=== PATIENT | male | born 1955 | race Caucasian/White ===

== ENCOUNTER 2024-10-12 08:21 | Day surgery (SDC) | payer MEDICARE, OTHER, SELFPAY ==
[2024-10-12] VITALS (12 sets, daily range): BP systolic 128–147; BP diastolic 76–97; BMI 42.0
--- NOTE | 2024-10-12 12:31 | CONSULT.STRU ---
Consultation
-
Date/Time Consultation Requested: 10/12/2024
Date/Time Consultation Performed: 10/12/2024
Requesting Provider: Dr. Ivan Agrawal
Performing Provider: HUNTER Martino
Reason for Consultation: Aortic Stenosis/ TAVR evaluation
Patient History
Physicians
Family Physician: Robert Man
Outpatient Loss Control Technician: Tulio Melo
Primary Loss Control Technician: Tulio Gage
History of Present Illness
Mr. Wood is a 68yo male that is here today for cardiac cath as part of his evaluation for his severe aortic stenosis. He has a a known history of COPD/Emphysema and follows with pulmonology but over the last 3 months he has noticed increased SINHA,
chest pain and leg weakness. He was seen by his shoe stock associate and it was not felt to be related to his chronic lung disease. He had an echocardiogram on 09/27/2024 that was notable for aortic valve PG/M.9/47.3, velocity 4.66 m/s, PALMIRA: 1.04cm2,
trace AI, mild MR, EF 55-60%. His had progressed to severe compared to his prior TTE from 04/22/2023. His cardiac catheterization today showed very mild nonobstructive coronary artery disease. His medical history is significant for h/o tobacco
abuse (1 PPD for 43years) and since 2022 he still may smoke 1-3 cigarettes a day when he is feeling stressed. He also vapes marijuana daily and has about 9 alcoholic drinks a week. He denies PND, orthopnea, peripheral edema or palpitations. He
states the chest pain he feels occurs when he is feeling stressed.
Reviewed the pathophysiology of aortic stenosis with the patient and his daughter. Explained the treatment options of SAVR and TAVR. Explained the TAVR evaluation process including follow up BMP, CT TAVR scan, CT surgery consult and Heart Team
discussion. Provided with script for BMP next week, script and appointment for CT TAVR, Consult appointment with Dr. Marc and a copy of the TAVR education booklet with contact information. Allowed for and answered questions.
Past Medical History
Past Medical History: Angina, Cancer (skin), COPD (emphysema), SINHA, GERD, HTN, Hypercholesterolemia, Hypothyroidism, Psychiatric (anxiety/depression), SOB, Valvular Disease and Other (IBS)
Past Surgical History
Past Surgical History: Orthopedic (Right THR) and Other (corneal transplants, skin cancer removed)
Dental History
Needs dental work, contact info for [facility] given to patient
Family History
Mother: at Age (70s) and Cause of (dementia, pneumonia)
Father: at Age (67) and Cause of (cardiac)
Social History
Alcohol: Daily (beer/wine)
Drug: Marijuana (vapes daily)
Tobacco: Smoker (1-3 cigaretttes/ day, prior to April 2023 he smike 1 PPD unfiltered cig. for 45 years)
Personal:
Living: Alone
Employment: Retired (senior java web application developer)
Allergies
Allergy/AdvReac Type Severity Reaction Status Date / Time
No Known Allergies Allergy Unverified 10/12/24 08:30
Home Medications
�Medication �Instructions �Recorded �Confirmed �Type
albuterol sulfate 90 mcg/actuation 2 puff inhalation 6XD PRN wheezing 10/12/24 10/12/24 History
aerosol inhaler
aspirin 81 mg tablet 81 mg PO DAILY 10/12/24 10/12/24 History
atorvastatin 40 mg tablet 40 mg PO DAILY 10/12/24 10/12/24 History
fluticasone fur. 100 mcg-umeclid 1 inh inhalation DAILY 10/12/24 10/12/24 History
62.5 mcg-vilant 25 mcg
inhalat.powder (Trelegy Ellipta)
lisinopril 10 1 tab PO DAILY 10/12/24 10/12/24 History
mg-hydrochlorothiazide 12.5 mg
tablet
magnesium glycinate 400 mg PO DAILY 10/12/24 10/12/24 History
STS%
STS %: 1.72%
Review of Systems
-
History Source: Patient and Family
General: Reports Weight Gain (Since [facility]) and Fatigue
HEENT: Denies Visual Changes or Dysphagia
Respiratory: Reports SOB, SINHA and Other (COPD/Emphysema)
Cardiac: Reports Chest Pain (with stress and exertion) and Palpitations (occasional)
Abdomen/GI: Reports Reflux; Denies Nausea, Vomiting or Diarrhea
: Reports No Symptoms
Musculoskeletal: Reports No Symptoms
Skin: Reports No Symptoms
Neurological: Reports Weakness (bilateral legs with exertion); Denies CVA, TIA, Headaches or Syncope
Vascular: Reports No Symptoms; Denies Claudication
Physical Exam
Vital Signs
Temp 97.7 F 10/12/24 08:38
Temp route: Oral 10/12/24 08:38
Pulse 53 10/12/24 12:00
Blood pressure 131/80 10/12/24 11:55
Blood pressure extremity used: Left upper arm 10/12/24 11:56
Position: Sitting 10/12/24 11:56
MAP (cuff-Dwaine Monitor) 97 10/12/24 11:55
SaO2 95 10/12/24 12:00
Oxygen Mode of Delivery Room air 10/12/24 11:56
Can the patient verbally communicate their pain? Yes 10/12/24 11:56
Actual Weight 128.82 kg 10/12/24 08:26
Body Mass Index (BMI) 42.0 10/12/24 08:26
Labs
10/12/24 06:00
10/03/2024 ([facility]):
BUN/Creat:18/1.06
GFR: 75
H/H: 14.7/45.3
WBC: 10.3
Platelets: [id number]
Diagnostic Studies
09/27/2024 Echocardiogram:
SUMMARY
1. Normal left ventricular systolic function without distinct regional wall motion abnormalities.
2. Left ventricular ejection fraction, by visual estimation, is 55 to 60%.
3. Concentric remodeling of the left ventricle.
4. Grade 2 LV diastolic dysfunction, pseudonormal pattern.
5. Normal right ventricular size and systolic function.
6. Moderately dilated left atrium by volume index 42.7 mL/m2.
7. Normal right atrium by area 18.7 cm2.
8. Right atrial pressure of (3 mmHg), the estimated right ventricular systolic pressure is mildly elevated at (49.8 mmHg).
9. Aortic valve is thickened and calcified. Severe aortic valve stenosis. Trace aortic regurgitation.
10. AoV velocity of 4.66 m/s; Peak aortic valve gradient = 86.9 mmHg; Mean gradient = 47.3 mmHg; AoV Area by continuity equation = 1.04 cm2; AoV Dimensionless Index = 0.23.
11. Mild mitral valve regurgitation is seen.
12. There is a fat pad vs. trivial pericardial effusion.
13. Study done in Normal sinus rhythm.
14. Compared to a prior TTE study from 04/22/2023 Aortic valve gradients have increased and are now indicate severe aortic stenosis.

PHYSICIAN INTERPRETATION
Left Ventricle:
Definity Intravenous contrast was given for enhancement of the left ventricular endocardial borders. The left ventricular internal cavity size was normal. There was Grade 2 LV diastolic dysfunction, pseudonormal pattern. Normal left ventricular
systolic function without distinct regional wall motion abnormalities. Left ventricular ejection fraction, by visual estimation, is 55 to 60%. Concentric remodeling of the left ventricle.
Right Ventricle:
Normal right ventricular size, wall thickness, and systolic function. The tricuspid regurgitant velocity predicts an estimated right ventricular systolic pressure of 49.8 mmHg.
Left Atrium:
The left atrium is moderately dilated by volume index 42.7 mL/m2.
Right Atrium:
Right atrium is normal by area 18.7 cm2.
Inferior vena cava normal in size (<2.1 cm) + greater than 50% variably consistent with normal right atrial pressures (3 mmHg).
Aortic Valve:
The aortic valve is thickened and calcified. Doppler findings and restricted movement of the aortic valve cusps are consistent with severe aortic stenosis. The peak aortic valve gradient is 86.9 mmHg. The mean aortic valve gradient is 47.3 mmHg.
There is trace aortic regurgitation seen.
Mitral Valve:
The calculated mitral valve area is 4.22 cm�, using a pressure half-time of 52 msec. Mild mitral valve regurgitation is seen.
Tricuspid Valve:
There is mild tricuspid valve regurgitation. The tricuspid regurgitant velocity is (3.42 m/s), and with an assumed right atrial pressure of (3 mmHg), the right ventricular systolic pressure is mildly elevated (49.8 mmHg).
Pulmonary Valve:
The pulmonary valve is normal in structure and function, with good leaflet excursion, and without any evidence of pulmonary stenosis or significant regurgitation.
Aorta:
The aortic root appears normal in dimension, with no evidence of dilatation or obstruction.
Pericardium:
A trivial pericardial effusion vs fat pad noted.
Sinus Rhythm: Normal sinus rhythm.
Comparison To Previous Study:
Compared to a prior transthoracic study from 04/22/2023ortic valve gradients have increased and are now indicate severe aortic stenosis.
10/12/2024 Cardiac Cath:
HEMODYNAMIC FINDINGS (mmHg):
LV(s/d,EDP): Valve not crossed. Given high echo gradients and the difficulty with access I did not think it was vasquez to be more aggressive with attempts to cross the valve.
Ao(s/d,m): 105/68, 85
ANGIOGRAPHIC FINDINGS:
Single-plane Left Ventriculography in MORRELL Projection: Valve not crossed. Not done.
Coronary Angiography:
Dominance: Left
Left Main: Large caliber, widely patent.
Left Anterior Descending: The left anterior descending artery is a large-caliber vessel that gives rise to a large caliber first high diagonal branch. The diagonal branch is widely patent with no focal disease in two major distal branches.. The
LAD itself has mild proximal and heavy mid calcification without significant stenotic disease. There is at worst a smooth mid 30% stenosis. All distal vessels have normal flow.
Ramus intermedius: Small caliber, widely patent.
Left Circumflex: The circumflex is a medium caliber system that gives rise to 1 major branching obtuse marginal branch that appears angiographically normal with normal flow.
Right Coronary: The right coronary artery is a huge caliber dominant vessel that gives rise to a very large caliber posterior descending artery that is widely patent. No focal disease.
Fluoroscopy Time (min): 17
Radiation Dose (mGy): 958
DAP (Gy.cm2): 71
Closure device: None. A TR band was applied for hemostasis at the right wrist.
Complications: None.
ASSESSMENT:
1: Very mild nonobstructive coronary artery disease.
2: Tortuous great vessels with very challenging access from the right radial approach. In the future consider either left radial or femoral approach.
CONCLUSIONS and RECOMMENDATIONS:
1: Proceed with TAVR evaluation.
2: Continue medical therapy as ordered.
3: Smoking cessation remains a critical intervention to reduce his morbidity and mortality from vascular events.
Exam
General: Well Developed, Well Nourished and Comfortable
HEENT: Normocephalic, Moist Mucous Membranes, PERRLA and EOMI
Neck: Trachea Midline
Respiratory: Clear and Other (diminished bilateral bases)
Cardiac: S1/S2, Regular Rhythm and Murmur (Grade II/ MADELINE)
GI: Soft, Non Tender, Non Distended and Normal Bowel Sounds
Rectal: Deferred by Provider
Skin: Warm and Dry
Neuro: AO x 3 and Nonfocal/Grossly Intact
Extremities: Lower Level Edema (trace bilateral LE) and Pulses (+1 right DP, +2 left DP)
Psych: Calm
Assessment / Plan
-
Procedure Type:�Isolated AVR
Perioperative Outcome Estimate %
Operative Mortality 1.72%
Morbidity & Mortality 7.66%
Stroke 0.675%
Renal Failure 1.41%
Reoperation 2.67%
Prolonged Ventilation 4.68%
Deep Sternal Wound Infection 0.176%
Long Hospital Stay (>14 days) 5.44%
Short Hospital Stay (<6 days)* 47.8%
Severe Aortic stenosis:
����������� Continue evaluation for aortic stenosis as outpatient
����������� BMP next week at [facility]
����������� CT TAVR scan 10/24/2024 at
����������� CT surgery consult with Dr. Marc� 11/07/2024
����������� Dental Clearance- Contact information for Dr. Duran given to patient
����������� Heart team discussion at [facility]
Data Reviewed
-
EKG: Report Reviewed by me
Senior Java Web Application Developer: Report Reviewed by me, Discussed with Patient and Discussed with Family
Echo: Report Reviewed by me, Discussed with Patient and Discussed with Family
Labs: Labs Reviewed by me
Old Records: Reviewed (Cardiology consult note)
Total Time Spent with Patient (in minutes): 30
--- NOTE | 2024-10-12 13:34 | ITS.CL.CATH ---
Wet End Operator - Catheterization
Cardiac Catheterization
Procedure Report:
LEFT HEART CATHETERIZATION
Date of Procedure: October 12, 2024
Procedures performed:
1: Coronary angiography
Primary Care Physician: Dr. Robert Shah
Primary Pigs Feet Finisher: Dr. Tulio Melo
INDICATION: The patient is a 68-year-old man with a past medical history significant for COPD with ongoing smoking, hypertension, hyperlipidemia, EtOH use and progressive aortic stenosis who is referred for cardiac catheterization in preparation for
aortic valve intervention. Echo performed on September 27 showed preserved LV systolic function with an ejection fraction estimated at 55 to 60% with severe calcific aortic stenosis with a mean gradient of 47 mmHg. The valve area by continuity was 1.0
cm� and aortic valve dimensionless index was 0.23. Mild mitral regurgitation was noted.
ACCESS: The patient was prepped and draped in usual sterile fashion. A 6 [place] Islander sheath was placed in the right radial artery using the Seldinger over the wire technique. This was very challenging due to great vessel tortuosity. Ultimately a 90 cm
6 [place]er sheath was advanced with the tip positioned in the descending aorta to successfully engage the right coronary artery with a 5 [place] JR4 diagnostic catheter. The left coronary was engaged using a 6 [place] JL 4 diagnostic catheter.
HEMODYNAMIC FINDINGS (mmHg):
LV(s/d,EDP): Valve not crossed. Given high echo gradients and the difficulty with access I did not think it was vasquez to be more aggressive with attempts to cross the valve.
Ao(s/d,m): 105/68, 85
ANGIOGRAPHIC FINDINGS:
Single-plane Left Ventriculography in MORRELL Projection: Valve not crossed. Not done.
Coronary Angiography:
Dominance: Left
Left Main: Large caliber, widely patent.
Left Anterior Descending: The left anterior descending artery is a large-caliber vessel that gives rise to a large caliber first high diagonal branch. The diagonal branch is widely patent with no focal disease in two major distal branches.. The
LAD itself has mild proximal and heavy mid calcification without significant stenotic disease. There is at worst a smooth mid 30% stenosis. All distal vessels have normal flow.
Ramus intermedius: Small caliber, widely patent.
Left Circumflex: The circumflex is a medium caliber system that gives rise to 1 major branching obtuse marginal branch that appears angiographically normal with normal flow.
Right Coronary: The right coronary artery is a huge caliber dominant vessel that gives rise to a very large caliber posterior descending artery that is widely patent. No focal disease.
Fluoroscopy Time (min): 17
Radiation Dose (mGy): 958
DAP (Gy.cm2): 71
Closure device: None. A TR band was applied for hemostasis at the right wrist.
Complications: None.
ASSESSMENT:
1: Very mild nonobstructive coronary artery disease.
2: Tortuous great vessels with very challenging access from the right radial approach. In the future consider either left radial or femoral approach.
CONCLUSIONS and RECOMMENDATIONS:
1: Proceed with TAVR evaluation.
2: Continue medical therapy as ordered.
3: Smoking cessation remains a critical intervention to reduce his morbidity and mortality from vascular events.
Ramírez Agrawal M.D.
Copy to: Dr. Robert Shah
[2024-10-17 08:49] LABS: ACT-LR - POC 139 Seconds (116-155)
[2024-10-17 08:49] LABS: ACT-LR - POC 192 Seconds (116-155)
== END 2024-10-12 13:30 | disposition home or self-care (01) ==
LOC: CATH 08:21
PROVIDERS: ATTENDING PHYSICIAN Internal Medicine Interventional Cardiology; FAMILY PHYSICIAN Family Medicine; OTHER PHYSICIAN Internal Medicine Cardiovascular Disease
DX: I25.10 Atherosclerotic heart disease of native coronary artery without angina pectoris (principal); I08.3 Combined rheumatic disorders of mitral, aortic and tricuspid valves; E78.00 Pure hypercholesterolemia, unspecified; I10 Essential (primary) hypertension; F17.210 Nicotine dependence, cigarettes, uncomplicated; J43.9 Emphysema, unspecified; R07.9 Chest pain, unspecified; F41.9 Anxiety disorder, unspecified; F32.A Depression, unspecified; I38 Endocarditis, valve unspecified; Z85.828 Personal history of other malignant neoplasm of skin; Z94.7 Corneal transplant status; Z79.82 Long term (current) use of aspirin; Z79.899 Other long term (current) drug therapy
CPT/HCPCS: 85347; 93458; C1769; C1894; Q9967

== ENCOUNTER → 2024-10-24 09:21 | Outpatient (REF) | payer MEDICARE, OTHER, SELFPAY | LOC: RAD 09:21 | PROVIDERS: ATTENDING PHYSICIAN Nurse Practitioner Adult Health | DX: I35.0 Nonrheumatic aortic (valve) stenosis (principal) | CPT/HCPCS: 74174; 75572; Q9967 ==

== ENCOUNTER 2024-12-01 09:24 | Inpatient (IN) | payer MEDICARE, OTHER, SELFPAY ==
[2024-11-24 08:53] LABS: % Basophils 0.4 % (0-2); % Eosinophils 2.3 % (0-6); % Immature Granulocytes 0.3 % (0-0.5); % Lymphocytes 13.8 % (20.5-51.1); % Monocytes 7.7 % (1.7-9.3); % Neutrophils 75.5 % (42.2-75.2); Absolute Basophils 0.1 10^3/uL (0-0.2); Absolute Eosinophils 0.3 10^3/uL (0-0.7); Absolute Lymphocytes 1.7 10^3/uL (1.2-3.4); Absolute Neutrophils 9.4 10^3/uL (1.4-6.5); Hematocrit 42.9 % (39.0-52.0); Hemoglobin 14.4 g/dL (13.0-18.0); Mean Corp Hgb Conc. 33.6 g/dL (33.0-37.0); Mean Corpuscular Hgb 31.9 pg (27.0-31.0); Mean Corpuscular Volume 95.1 fL (80.0-94.0); Mean Platelet Volume 10.7 fL (7.4-10.4); Nucleated Red Blood Cells % 0 % (-); Platelet Count 251 10^3/uL (130-400); Red Blood Cell Count 4.51 10^6/uL (4.70-6.10); Red Cell Dist. Width 13.8 % (11.5-14.5); White Blood Cell Count 12.4 10^3/uL (4.8-10.8)
[2024-11-24 08:57] LABS: Urine Albumin Negative (Neg - Trace); Urine Bilirubin Negative (Negative); Urine Character Clear (Clear); Urine Color Yellow; Urine Glucose Negative (Negative); Urine Ketone Negative (Negative); Urine Leukocyte 1+ (Negative); Urine Nitrite Negative (Negative); Urine Occult Blood Negative (Negative); Urine Specific Gravity 1.005 (<1.030); Urine Urobilinogen Negative (Neg - 1+)
[2024-11-24 09:03] LABS: APTT 26.5 Sec (23.4-35.0); INR 0.88; PT 12.5 Sec (11.4-14.6)
[2024-11-24 09:06] LABS: Urine Red Blood Cell 0-2 /HPF (0-2); Urine Squamous Cell 0-2 /LPF (Few); Urine White Cell 0-2 /HPF (0-5)
[2024-11-24 09:09] LABS: ALT (SGPT) 24 U/L (0-50); AST (SGOT) 29 U/L (17-59); Alkaline Phosphatase 87 U/L (38-126); Blood Urea Nitrogen 19 mg/dl (9-20); Carbon Dioxide 27 mmol/L (22-30); Chloride 103 mmol/L (98-107); Direct Bilirubin 0.1 mg/dl (0.0-0.4); Glucose 119 mg/dl (70-99); Potassium 4.4 mmol/L (3.5-5.1); Sodium 138 mmol/L (135-145); Total Bilirubin 1.3 mg/dl (0.2-1.3); Total Protein 7.1 g/dl (6.3-8.2); eGFR > 60.00
[2024-11-24 09:17] LABS: NT-proBNP 4510 pg/ml
--- NOTE | 2024-11-24 10:00 | W.PN.UPDATE ---
Update Note
Progress Note Update
Patient assessed in preadmission testing and confirmed medication list. He will take 81 mg aspirin and his inhalers before his 0930 arrival time to the [facility]. Patient understands the risks of the procedure as discussed with Dr. Marc in
consult. Informed patient he will receive a phone call from the heart team Thursday 11/30 to confirm time and location of arrival.
[2024-11-24 10:15] LABS: Glycohemoglobin (HgbA1c) 5.7 % (4.0-5.6)
--- NOTE | 2024-11-24 10:20 | CM ---
Chart reviewed. Met with the patient in PAT. Patient is independent of ADLS, lives alone in a 1 story mobile home, 2 XAVIER, 0 DME. Patient's daughter lives 15 min away. Reviewed preoperative and postoperative instructions and restrictions, along
with showering guidelines. Patient is agreeable to a home visit by CT Transitional RN. Plan is for the patient to return home with CT Transitional RN.
[2024-11-24 13:45] VITALS: BMI 42.5
[2024-12-01] VITALS (23 sets, daily range): BP systolic 105–159; BP diastolic 76–97
[2024-12-01 14:05] LABS: ACT-LR - POC 289 Seconds (116-155)
[2024-12-01 14:18] LABS: ACT-LR - POC 310 Seconds (116-155)
[2024-12-01 14:53] LABS: ACT-LR - POC 314 Seconds (116-155)
--- NOTE | 2024-12-01 15:17 | W.CVOR.SURPR ---
CVOR Surgeon Immed Pre Op
-
I have examined this patient prior to performance of the scheduled procedure.
The patient's condition is unchanged from the time of the dictated/written History and
Physical and the patient is able to undergo the scheduled procedure.
--- NOTE | 2024-12-01 15:18 | W.IMMPOSTOP ---
Surgical Immed Post Op Note
-
[id number]
STRUCTURAL HEART PROCEDURE NOTE:
Preoperative Dx:
Severe aortic stenosis (P/M: 86.9/47.3, PALMIRA 1.04, Frame Tender 4.5m/s)
Morbid Obesity (BMI 42.5)
COPD
Dizziness & difficulties with balance
Numbness/tingling of extremities
Depression/anxiety
EtOH abuse (daily use)
Marijuana abuse
Tobacco abuse (current smoker; 1PPD x 43 years)
HTN/HLD
Urinary frequency
Hypothyroidism
IBS
Skin CA (removed)
Corneal implants
Postoperative Dx:
Same
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
Procedures:
1) L CFV access w/ U/S and fluoroscopic guidance, micropuncture technique, long 6Fr sheath placement
2) L FIELD RADIO TECHNICIAN access w/ tactile (limited), U/S, and fluoroscopic guidance, micropuncture technique, long 6Fr sheath placement
3) Placement of temporary RV pacing wire w/ threshold testing
4) Placement of pigtail catheter in NCC via L FIELD RADIO TECHNICIAN access w/ limited aortography & confirmation of cusp-overlap views
5) R FIELD RADIO TECHNICIAN access w/ tactile (limited), U/S, and fluoroscopic guidance, micropuncture technique, limited angiography, 8Fr dilator placement
6) Perclose placement x 2 into R FIELD RADIO TECHNICIAN, 8Fr sheath placement
7) Lunderquist wire placement through 8Fr sheath w/ subsequent serial dilation of R ileofemoral system & placement of 18Fr COOK sheath (systemic heparin)
8) Wire purchase across stenotic AV (AL-1, soft-tip straight, attempted table-J, return to soft-tip straight, AL-1 into LVOT, J-wire, pigtail catheter, LVEDP assessment (31mmHg))
9) Fluoroscopic inspection of TAVR valve - lunderquist wire to LV
10) Pre-TAVR BAV w/ 25mm TRUE balloon x 2
11) Removal of 18Fr COOK sheath w/ placement of TAVR valve & in-line sheath
12) R TF TAVR w/ placement of 34mm EVOLUT FX+ (1 complete recapture)
13) Post-TAVR DIA assessment (trace PVL, mean gradient 10mmHg)
14) Fluoroscopic inspection of TAVR valve
15) Removal of [id number] w/ R FIELD RADIO TECHNICIAN mgmt w/ perclose sutures x 2; 8Fr angioseal; manual pressure
16) Completion R ileofemoral angiography
17) Removal of temporary pacing wire
18) Limited angiography of L FIELD RADIO TECHNICIAN
19) Removal of L FIELD RADIO TECHNICIAN 6Fr sheath w/ mgmt w/ 6Fr angioseal; manual pressure (protamine)
20) Removal of L CFV 6Fr sheath; manual pressure
Cruise Counselor:
Dr. Nivia Cho
Cardiac Surgeon:
Dr. Yash Alexander
Anesthesia:
Dr. Theodore Guillory and Deisi Kowalski, C.R.N.A.
General endotracheal
Implants:
Medronic Evolut FX+; 34mm; [id number]
Perclose x 2 and 8Fr angioseal x 1 to R FIELD RADIO TECHNICIAN
6Fr angioseal x 1 to L FIELD RADIO TECHNICIAN
Cath Data:
Start: 1334hrs, Deploy: 1446hrs, End: 1511hrs
FT: 26.2min, mGy: 3003.47, DAP: 201.42, Contrast: 176mL
Post-DIA: mean gradient 10mmHg, trace PVL
Complications:
None
Condition:
Stable/guarded to recovery
[2024-12-01] MEDS: ANCEF 10 IV (15:50)
--- NOTE | 2024-12-01 16:26 | CM ---
Chart reviewed. Patient is independent of ADLS, lives alone in a mobile home, 2 XAVIER, 0 DME. Plan is for the patient to return home with CT Transitional RN. CM to follow
--- NOTE | 2024-12-01 16:39 | ITS.CL.TAVR ---
Drafter Apprentice - TAVR Report
TAVR PRocedure
Procedure Report:
TRANSCATHETER AORTIC VALVE REPLACEMENT
Date of Procedure: December 01, 2024
Referring: Sarah Agrawal and Tulio Gage
Operators: Drs. Nivia Cho MD and Yash Alexander MD
PROCEDURE PERFORMED:
1. Successful placement of 34 mm Medtronic Evolut FX+ valve via right femoral artery.
ACCESS:
1. Right common femoral artery, 8 [place] Ze[place]ander sheath, under ultrasound guidance using a micropuncture kit.
2. Left common femoral vein, 6 [place] sheath, under ultrasound guidance using a micropuncture kit.
3. Left common femoral artery, 6 [place] sheath, under ultrasound guidance using a micropuncture kit.
Ultrasound was utilized for vascular access. The right and left femoral artery and vein were visualized under ultrasound, and the vessels was patent and arteries were pulsatile. An image was stored permanently in the patient's medical record.
Under direct ultrasound guidance, a 6 [place] Zealander sheaths was inserted into the left common femoral artery and vein, and an 8 [place] sheath in the right common femoral artery, respectively, using a micropuncture kit through a modified Seldinger technique.
PREPROCEDURE NYHA CLASS: II
DESCRIPTION OF PROCEDURE: The patient was referred for assessment of severe symptomatic aortic stenosis and following a comprehensive evaluation it was felt that transcatheter aortic valve replacement (TAVR) would be the most appropriate treatment.
Informed consent was obtained prior to the procedure. A 'time-out' was called and the procedural plan was verbally confirmed by anesthesia, surgery, perfusion, and laboratory equipment installer staff.
Arterial and venous access were obtained in the left common femoral artery and vein using a micropuncture technique and 6 Fr. sheaths were inserted. A 5 Fr. transvenous pacing wire was then advanced to the right ventricle where excellent pacing
thresholds were obtained.
A 5 Fr. pigtail catheter was then advanced to the proximal ascending aorta / noncoronary cusp where angiography was performed to define the the cusp overlap view isolating the non-coronary cusp with overlap of the right and left coronary cusps.
Given significant difficulty due to body habitus with extreme angle of the cusp overlap view we decided to work with the 3 cuts coplanar view, which was MORRELL 3 / CAU 5.
Ultrasound guidance was then used to obtain arterial access in the right common femoral artery and a 6 Fr. sheath was inserted. Angiography was performed and the arteriotomy site appeared appropriate for preclosure with two Perclose devices. An 8
[place]ander sheath was then inserted back into the common femoral artery over a J-tipped guidewire. An AL1 catheter was then advanced to the proximal descending aorta. A Double-curve Lunderquist 0.035' wire was placed in the proximal descending
thoracic aorta to facilitate delivery of a 18 Fr / 25 cm Cook sheath.
An AL1 catheter was then positioned just above the aortic valve and a 0.035' Straight tip wire probed the aortic valve and crossed the stenotic leaflets. The AL1 was then advanced to the mid left ventricle. A long J-wire was advanced to the left
ventricular apex and was followed to the apex with an angled pig-tail catheter. The Double Curve Lunderquist was then positioned in the left ventricular apex. The Evolut FX+ stent was inspected under fluoroscopy/cine while rotating the stent
delivery system. The stent paddles were within the pocket and no significant crown overlap noted.
Balloon predilation was performed with rapid pacing using a 25 mm STEPHANIE balloon. The balloon was removed and the 18 Fr. sheath was exchanged for the Evolut InLine delivery system. The 34mm Evolut FX+ stent was advanced across the stenotic leaflets.
The Evolut FX+ valve was slowly deployed in the 3 cusp coplanar view. The stent continued to flared achieving contact with the left coronary cusp. We transitioned quickly through the rumble strips on the InLine delivery sheath until the marker
band was positioned just below the paddle attachment. Angiography was performed. The valve structure was released from the delivery system when we were happy with the valve position. Post deployment angiography had only mild aortic insufficiency
and a mean gradient of 10 mmHg.
The Evolut FX+ delivery system capsule was reunited to the body of the delivery system. The Evolut InLine sheath was removed and the Perclose knots were advanced to the arteriotomy site resulting in excellent hemostasis.
CONCLUSIONS:
1. Severe symptomatic aortic stenosis. Successful deployment of a 34mm Evolut FX+ valve with minimal aortic insufficiency post procedure
2. Successful arteriotomy closure with 2 Perclose devices.
3. Significantly elevated invasive LVEDP at 31 mmHg consistent with acute on chronic diastolic heart failure.
Copy to: Sarah Agrawal and Tulio Gage
--- NOTE | 2024-12-01 17:10 | PTCARENOTE ---
At 1705, pt noted to have 11 beat run of VT. VSS. Pt asymptomatic. Pt states he was reaching up to fix his pillow. Dr Cho made aware. No treatment ordered at this time.
--- NOTE | 2024-12-01 18:00 | PTCARENOTE ---
Received pt post TAVR. VSS. Pt denies any sob or chest discomfort. Right groin site w/ old, scant drainage noted on arrival. Pt's left groin site w/ dressing clean, dry and intact. NIH-0, neuro checks per post op orders. Will monitor.
[2024-12-01] MEDS: SYMBICORT 80/4.5 MCG INHALER 2 PUFF INH (20:36)
[2024-12-01] MEDS: ANCEF 5 IV (21:02)
[2024-12-02] VITALS (7 sets, daily range): BP systolic 112–153; BP diastolic 65–86; PULSE 83; O2SAT 91–93; BMI 42.4
[2024-12-02] MEDS: TYLENOL 650 MG PO (02:27)
--- NOTE | 2024-12-02 02:33 | PTCARENOTE ---
Received pt @ change of shift. AAOx3. VSS-- NSR w/ occasional PVCs on monitor. Left groin clean, dry, and intact. Soft to touch, no hematoma present. Right groin little drainage-- no change from previous shift. Soft to touch, no hematoma present.
Left wrist from A-line clean, dry, and intact. Bedrest until 1930. Pt verbalizes understanding about calling care team when getting up first couple of times. MSAS 0. Discussed plan of care for evening. Pt verbalizes understanding. Call arellano within
reach.
[2024-12-02 02:54] LABS: Hemoglobin 12.9 g/dL (13.0-18.0); Mean Corp Hgb Conc. 33.9 g/dL (33.0-37.0); Mean Corpuscular Hgb 32.3 pg (27.0-31.0); Mean Corpuscular Volume 95.2 fL (80.0-94.0); Mean Platelet Volume 10.4 fL (7.4-10.4); Platelet Count 191 10^3/uL (130-400); Red Blood Cell Count 3.99 10^6/uL (4.70-6.10); Red Cell Dist. Width 13.9 % (11.5-14.5); White Blood Cell Count 11.5 10^3/uL (4.8-10.8)
[2024-12-02 03:13] LABS: Blood Urea Nitrogen 21 mg/dl (9-20); Calcium 7.9 mg/dl (8.4-10.2); Carbon Dioxide 23 mmol/L (22-30); Chloride 109 mmol/L (98-107); Estimated Creatinine Clearance 110 ml/min; Glucose 133 mg/dl (70-99); Magnesium 1.8 mg/dl (1.6-2.3); Potassium 4.7 mmol/L (3.5-5.1); Sodium 140 mmol/L (135-145); eGFR > 60.00
--- NOTE | 2024-12-02 07:43 | W.PN.ANS.POP ---
Anesthesia Post Operative
- Anesthesia Post Op Note
Vital Signs Stable-See Nursing Note: Yes
Airway Patent: Yes
Adequate Pain Control: Yes
Change in Mental Status: No
Current Postoperative Nausea & Vomiting: No
Anesthesia Complications: No
General Anesthetic Recall: No
Unplanned Admission: No
Post Op Hydration Adequate: Yes
- -
Pt awake and alert. No anesthesia c/o at time of post op visit.
[2024-12-02] MEDS: SPIRIVA RESPIMAT 2.5 MCG 2 PUFF INH (07:53)
[2024-12-02] MEDS: SYMBICORT 80/4.5 MCG INHALER 2 PUFF INH (07:53)
--- NOTE | 2024-12-02 08:14 | W.PN.CT ---
Today's Communication / Plan
-
-pod #1
-no issues overnight
-in nsr, no ramakrishna or pauses. Had very brief SVT. No ramakrishna or pauses
-Echo today
-continue current meds
-possible d/c home
Assessment / Plan
-
-Severe symptomatic - s/p Pre-TAVR BAV w/ 25mm TRUE balloon x 2; R TF TAVR w/ placement of 34mm EVOLUT FX+ (1 complete recapture); Post-TAVR DIA assessment (trace PVL, mean gradient 10mmHg) on 12/01/24, pod #1
-Post-DIA: mean gradient 10mmHg, trace PVL
-Morbid class 3 Obesity (BMI 42.5)
-COPD
-Dizziness & difficulties with balance
-Numbness/tingling of extremities
-Depression/anxiety
-EtOH abuse (daily use)
-Marijuana abuse
-Tobacco abuse (current smoker; 1PPD x 43 years)
-HTN/HLD
-Urinary frequency
-Hypothyroidism
-IBS
-Skin CA (removed)
-Corneal implants
Discussed patient care with: Nursing and Care Team
Subjective
-
Date of Service: December 02, 2024
Objective Data
-
Lab Results
12/02/24 02:12
12/02/24 02:12
PT 12.5 Sec (11.4-14.6) 11/24/24 08:27
INR 0.88 11/24/24 08:27
APTT 26.5 Sec (23.4-35.0) 11/24/24 08:27
Vital Signs
Vital Signs
Temp Pulse Resp BP Pulse Ox
97.9 F 84 18 153/85 97
12/02/24 07:35 12/02/24 07:57 12/02/24 07:57 12/02/24 02:21 12/02/24 07:57
CT Intake/Output/Weight
12/01/24 12/02/24 12/02/24
18:59 06:59 18:59
Intake Total 1999
Balance 1999
SaO2: 97
Physical Exam
-
General: Awake and AOx3
Cardiovascular: Regular rate & rhythm, No Murmurs and No Rub
Respiratory: Decreased Breath Sounds
Sternum: Stable
Incision: Clean, Dry and Intact (no hematoma and cdi b/l)
Extremities: No Edema
Data Reviewed
-
Lab Results: Results Reviewed
Medications: Active Meds Reviewed
Chest X-Ray: Report Reviewed and Image Reviewed
ECG: Report Reviewed and Image Reviewed
[2024-12-02] MEDS: LIPITOR 40 MG PO (08:30)
[2024-12-02] MEDS: ORETIC 12.5 MG PO (08:30)
[2024-12-02] MEDS: ZESTRIL 10 MG PO (08:30)
[2024-12-02] MEDS: MAG-TAB SR 84 MG PO (08:30)
[2024-12-02] MEDS: LOW STRENGTH ASPIRIN 81 MG PO (08:30)
--- NOTE | 2024-12-02 09:24 | W.PN.CARDCBS ---
Addendum entered and electronically signed by Chaka Rivera MD 12/02/24 12:13:
I saw and examined the patient.
The CANVAS CUTTER MACHINE or PA's note was reviewed and I agree with the note.
Comment: General: Well developed, well nourished in NAD.
Neck: Supple, no JVD, HJR, carotids +2 B/L, no bruits bilaterally.
Heart: Non displaced PMI, RRR, 1/6 basal systolic murmur, No S3, S4, no rubs.
Lungs: Clear to auscultation bilaterally, no wheeze, rhonchi, rubs bilaterally,
normal expiratory phase.
Extremities: No clubbing, cyanosis or edema bilaterally.
Neuro: Grossly nonfocal, awake, alert and oriented x3.
Stable cardiology status for discharge. He received a dose of IV Lasix earlier today. Check echocardiogram. Follow-up arranged
Original Note:
Today's Communication / Plan
-
Doing well status post TAVR
Status post IV Lasix this a.m.
In sinus rhythm
Await echo
Ambulate
Outpatient cardiac follow-up with [facility]
Impression / Plan
-
Primary Parole Officer: Dr. Gage of [facility]
Assessment:
-Severe symptomatic s/p Pre-TAVR BAV w/ 25mm TRUE balloon x 2; R TF TAVR w/ placement of 34mm EVOLUT FX+ (1 complete recapture) 12/01/24
-Acute on chronic diastolic congestive heart failure with LVEDP 31 at time of TAVR
-COPD
-HTN
-HLD
-Chronic dizziness/ambulatory dysfunction
-Neuropathy
-Depression/anxiety
-daily ETOH
-Marijuana abuse
-Tobacco abuse
-Morbid Obesity
-Hypothyroidism
-IBS
-Corneal implants
ECHO 12/02/24: pending
Plan:
- Status post R TF TAVR 12/02/2024
- Doing well overnight
- Echo pending
- In sinus rhythm with 2 very brief runs of SVT versus A. tach, asymptomatic.
- Hemoglobin stable at 12.9. Continue aspirin
- LVEDP 31 at time of TAVR. Received dose of 20mg IV Lasix this morning. He is on combo pill of lisinopril and HCTZ as an outpatient, continue
- Encouraged patient to follow daily weights at home
- Ambulate
- Outpatient follow-up with [facility] arranged
- Likely for discharge to home today
- Discussed with nursing, CT surgery CANVAS CUTTER MACHINE
Progress Note - Parole Officer
Subjective
Date of Service: December 02, 2024
Doing well. Denies groin pain
Objective
Labs:
12/02/24 02:12
12/02/24 02:12
Labs
Hgb 12.9 g/dL (13.0-18.0) L 12/02/24 02:12
Hct 38.0 % (39.0-52.0) L 12/02/24 02:12
Plt Count 191 10^3/uL (130-400) 12/02/24 02:12
PT 12.5 Sec (11.4-14.6) 11/24/24 08:27
INR 0.88 11/24/24 08:27
APTT 26.5 Sec (23.4-35.0) 11/24/24 08:27
Sodium 140 mmol/L (135-145) 12/02/24 02:12
Potassium 4.7 mmol/L (3.5-5.1) 12/02/24 02:12
BUN 21 mg/dl (9-20) H 12/02/24 02:12
Creatinine 0.8 mg/dL (0.7-1.3) 12/02/24 02:12
Glucose 133 mg/dl (70-99) H 12/02/24 02:12
Vital Signs and I&O:
Vital Signs
Temp Pulse Resp BP Pulse Ox
97.9 F 84 18 153/85 97
12/02/24 07:35 12/02/24 07:57 12/02/24 07:57 12/02/24 02:21 12/02/24 08:21
Vital Signs
Temp Pulse Resp BP Pulse Ox
97.9 F 84 18 153/85 97
12/02/24 07:35 12/02/24 07:57 12/02/24 07:57 12/02/24 02:21 12/02/24 08:21
Intake & Output
11/30/24 12/01/24 12/02/24 12/03/24
07:59 07:59 07:59 07:59
Intake Total 1999
Balance 1999
Physical Exam
Physical Exam
GEN: No distress, awake, alert, oriented x3. Obese
HEENT: supple, anicteric, mmm, EOMI
LUNGS: CTA bilaterally, no wheezes/rales
CV: Reg, S1/S2, 1/6 syst LSB
ABD: soft, BS+, NT/ND
EXT: No cyanosis, clubbing. Trace edema
NEURO: Gross non-focal
SKIN: Warm, pink, dry. No rash. Skin tear of left forearm with dressing in place
[2024-12-02] MEDS: LASIX 20 MG IV (09:46)
--- NOTE | 2024-12-02 10:44 | CM ---
Reviewed chart. Met with Mr. Wood to review discharge plans. He states he is feeling lightheaded right now. He states he maybe able t go home soon. He states prior to admission he resides alone in a mobile home with two steps to enter. He
states prior to admission he was independent with ambulation and adls. He states he does not have any DME in the home. He states he uses walking sticks when he goes out to the exercise. He state he has a prescription plan and use [facility]. He states his daughter will provide transportation home. We reviewed a home visit by the Transitional Care Nurse. He is agreeable to a home visit. Medical work-up in progress. The discharge plan is to return home with a home visit by
the Transitional Care Nurse when medically stable.
--- NOTE | 2024-12-02 12:26 | W.DCSUMMARY ---
Discharge Summary
Discharge Data
Date of Admission: 12/01/24
Date of Discharge: 12/02/24
Total time spent discharging patient (in min): 45
-
Pending Results: No
Hospital Course
Primary care physician:
Dr. Jones
Outpatient countersinker:
Dr. Gage
Inpatient consultants:
DCA
Procedures:
1. Right transfemoral aortic valve
Primary Diagnosis:
1. Severe Aortic Stenosis
Secondary Diagnoses:
1. Morbid obesity
2. COPD
3. Depression and anxiety
4. EtOH abuse
5. Marijuana abuse
6. Hypothyroidism
7. Hypertension
8. Hyperlipidemia
HPI: 69-year-old male seen in the office presented electively on 12/01 for a transcatheter aortic valve replacement with Dr. Alexander.
Hospital course: Patient was electively admitted on 12/02 for a transcatheter aortic valve replacement with Dr. Alexander. There were no intra-op events and patient went to slab miller operator recovery. B/l groins remain stable. He was sent to IVU for the
remainder of their recovery. On 12/02, POD #1, B/L groins remained stable. Repeat TTE showed a peak/mean gradient of 19/11mmHg, trace AI. He was deemed stable for discharge.
Home medication changes:
no changes. recommend tylenol prn pain
Discharge Plan
-
Patient Disposition: Home (Routine Discharge)
Discharge Diagnosis/Procedures: TF TAVR
Condition: Good
Diet: Low Fat, Low Cholesterol and 2 Gram Sodium
Activity: As tolerated
Driving Restrictions: No driving for 1 week
Bathing Restrictions: OK to Shower
Others Tests: 30 day echocardiogram: 01/02/2025 3pm at [facility] office.
You will need lifelong preprocedural/predental antibiotic prophylaxis for any future dental procedures
Other Services: Cardiac Rehab
Wound Care: No lotions, creams, or powders on bilateral groins.
Specialty Instructions: Weigh Daily- Call MD for wt gain/loss 3 lbs overnight/5 lbs in 1 week
Activity Restrictions/Additional Instructions:
Please call [facility] to get scheduled. P: [phone]
Referrals:
CT Transitional Care Nurse [Outside] - in one to two days
Referral Note: The Cardiothoracic Transitional Care Nurse will call you to set up a visit in 1-2 days.
Robert Man DO [Family Provider, Family Practice] - in four to six weeks
Referral Note: Please make an apointment in four to six weeks.
Tulio Gage MD [Active, Cardiology] - 12/22/24 9:30 am
Prescriptions:
New
acetaminophen 325 mg Tablet
650 mg PO Q4HPRN PRN (Reason: FOSTER, mild pain, or fever >101F) Qty: 0 0RF
Continued
atorvastatin 40 mg Tablet
40 mg PO DAILY
aspirin 81 mg Tablet
81 mg PO DAILY
lisinopril-hydrochlorothiazide 10-12.5 mg Tablet
1 tab PO DAILY
albuterol sulfate 90 mcg/actuation Hfa Aerosol Inhaler
2 puff INHALATION 6XD PRN (Reason: wheezing)
Trelegy Ellipta 100-62.5-25 mcg Blister With Device
1 inh INHALATION DAILY
magnesium glycinate 100 mg magnesium Capsule
400 mg PO DAILY
Marijuana Edible
1 dose PO DAILY
magnesium oxide 400 mg magnesium Tablet
400 mg PO DAILY
Discharge Orders:
Discharge Patient (As Directed); Ordered 12/02/24
Ordered By: Hayley Basilio
Care Plan Goals
Care Plan Goals:
Problem: Readiness for enhanced knowledge related to diagnosis and treatment plan
Goal: Understand your diagnosis and treatment plan needs, including medications if applicable.
Instructions: Know your diagnosis, underlying causes and treatment plan options, including medications if applicable. Consult with your health care team to learn about your diagnosis and treatment plan, including medications if applicable.
Discharge Date and Time
Print Language: [place]AST [place]
== END 2024-12-02 15:11 | disposition home or self-care (01) | DRG 266 ==
LOC: IVU 09:24
PROVIDERS: Clinical Nurse Specialist Acute Care; ADMITTING PHYSICIAN Thoracic Surgery (Cardiothoracic Vascular Surgery); CONSULT PHYSICIAN Internal Medicine Interventional Cardiology; FAMILY PHYSICIAN Family Medicine
PROC: 02RF38Z Replacement of Aortic Valve with Zooplastic Tissue, Percutaneous Approach (ICD-10-PCS; 2024-12-01)
DX: I35.0 Nonrheumatic aortic (valve) stenosis (principal); Z00.6 Encounter for examination for normal comparison and control in clinical research program; I50.43 Acute on chronic combined systolic (congestive) and diastolic (congestive) heart failure; Z68.41 Body mass index [BMI] 40.0-44.9, adult; I47.10 Supraventricular tachycardia, unspecified; E66.01 Morbid (severe) obesity due to excess calories; J44.9 Chronic obstructive pulmonary disease, unspecified; F32.A Depression, unspecified; F41.9 Anxiety disorder, unspecified; F10.10 Alcohol abuse, uncomplicated; F12.10 Cannabis abuse, uncomplicated; F17.210 Nicotine dependence, cigarettes, uncomplicated; E78.5 Hyperlipidemia, unspecified; I11.0 Hypertensive heart disease with heart failure; R35.0 Frequency of micturition; E03.9 Hypothyroidism, unspecified; K58.9 Irritable bowel syndrome, unspecified
CPT/HCPCS: 93308; 33361; 36415; 71045; 71046; 80048; 80053; 81003; 81015; 82248; 83036; 83735; 83880; 85025; 85027; 85347; 85610; 85730; 86850; 86900; 86901; 87070; 87077; 87086; 87147; 93005; 93312; 93320; 93321; 93325; 94640; C1760; C1769; C1894; Q9967